=== PATIENT | female | born 1995 | race Two or more races ===

== ENCOUNTER 2019-03-29 13:28 | Inpatient (IN) | payer MEDICAID ==
[~2019-03-29] VITALS: Ht 157.5 cm; Wt 34.9 kg
[2019-03-29] VITALS (7 sets, daily range): BP systolic 100–118; BP diastolic 60–71
[2019-03-29] MEDS ORDERED: MAGNESIUM HYDROXIDE SUSPENSION 30 ML UDCUP PO PRN (14:45)
[2019-03-29] MEDS ORDERED: LOPERAMIDE HCL 2 MG CAPSULE PO PRN (14:45)
[2019-03-29] MEDS ORDERED: ACETAMINOPHEN 325 MG TABLET PO PRN (14:45)
[2019-03-29] MEDS ORDERED: QUEtiapine FUMARATE 100 MG TABLET PO PRN (14:45)
[2019-03-29] MEDS ORDERED: LORazepam 2 MG TABLET PO PRN (14:45)
[2019-03-29] MEDS ORDERED: TUBERCULIN, PURIFIED PROTEIN DERIVATIVE 5 TU/0.1 ML SYRINGE ID ONE (14:45)
[2019-03-29] MEDS ORDERED: GuaiFENesin/D-METHORPHAN [SUGAR-FREE] 200-20MG/10 ML SYRUP UDCUP PO PRN (14:45)
[2019-03-29] MEDS ORDERED: PROMETHAZINE HCL 25 MG TABLET PO PRN (14:45)
[2019-03-29] MEDS ORDERED: MAG HYDROX/AL HYDROX/SIMETH ES 30 ML SUSPENSION UDCUP PO PRN (14:45)
[2019-03-29] MEDS: LORazepam 2 MG TABLET PO SCH (17:09)
[2019-03-29] MEDS: THIAMINE HCL 100 MG TABLET PO SCH (17:44)
[2019-03-29] MEDS: MIRTAZAPINE 15 MG TABLET PO SCH (21:16)
[2019-03-29] MEDS: ZOLPIDEM TARTRATE 10 MG TABLET PO PRN (21:21)
[2019-03-30] VITALS (7 sets, daily range): BP systolic 108–121; BP diastolic 61–85
[2019-03-30] MEDS ORDERED: LORazepam 2 MG TABLET PO PRN (07:00)
[2019-03-30 07:40] LABS: BASOPHILS % (AUTO) 0.4 % (0.0-2.0); EOSINOPHILS % (AUTO) 2.4 % (1.0-6.0); HEMOGLOBIN 13.2 g/dL (12.0-16.0); LYMPHOCYTES # (AUTO) 2.7 K/uL (1.0-4.8); LYMPHOCYTES % (AUTO) 37.9 % (22.0-44.0); MEAN CORPUSCULAR HEMOGLOBIN 29.1 pg (26.0-34.0); MEAN CORPUSCULAR HGB CONC 33.1 G/dL (31.0-37.0); MEAN CORPUSCULAR VOLUME 88 fL (80-100); MONOCYTES # (AUTO) 0.7 K/uL (0.1-1.0); MONOCYTES % (AUTO) 10.1 % (2.0-9.0); NEUTROPHILS # (AUTO) 3.5 K/uL (1.8-7.7); NEUTROPHILS % (AUTO) 49.2 % (40.0-70.0); PLATELET COUNT (AUTO) 210 K/uL (150-450); RED BLOOD CELL COUNT(AUTO) 4.54 MIL/uL (4.00-5.20); RED CELL DISTRIBUTION WIDTH 16.2 % (11.5-14.5)
[2019-03-30] MEDS: MULTIVITAMINS WITH MINERALS, THERAPEUTIC TABLET PO SCH (08:02)
[2019-03-30] MEDS: FOLIC ACID 1 MG TABLET PO SCH (08:03)
[2019-03-30] MEDS: THIAMINE HCL 100 MG TABLET PO SCH ×2 (08:03→16:45)
[2019-03-30 08:23] LABS: ALANINE AMINOTRANSFERASE 13 U/L (12-78); ALBUMIN 3.8 g/dL (3.4-5.0); ALKALINE PHOSPHATASE 41 U/L (46-116); ANION GAP 8 mmol/L (8-16); ASPARTATE AMINOTRANSFERASE 14 U/L (15-37); BILIRUBIN,TOTAL 0.6 mg/dL (0.1-1.0); CALCIUM, TOTAL 9.2 mg/dL (8.8-10.5); CARBON DIOXIDE 26 mmol/L (22-29); CHLORIDE 106 mmol/L (98-107); CHOL/HDL RATIO 3.1 (3.9-5.7); CHOLESTEROL 132 mg/dL (131-200); CREATININE 0.72 mg/dL (0.60-1.30); FREE T4 (FREE THYROXINE) 1.22 ng/dL (0.76-1.46); GLOMERULAR FILTR. RATE CALC > 60 mL/min (>60); GLUCOSE,RANDOM 86 mg/dL (70-110); HCG,QUANTITATIVE < 1 mIU/mL (0-6); HDL CHOLESTEROL 42 mg/dL (40-60); LDL CHOL (CALC.) 81 mg/dL (0-130); POTASSIUM 3.7 mmol/L (3.5-5.1); SODIUM SERUM 140 mmol/L (136-145); THYROID STIMULATING HORMONE 2.17 uIU/mL (0.36-3.74); TRIGLYCERIDES 45 mg/dL (15-150); UREA NITROGEN, BLOOD 14 mg/dL (7-18)
[2019-03-30] MEDS: LORazepam 2 MG TABLET PO SCH (12:18)
[2019-03-30] MEDS: ZOLPIDEM TARTRATE 10 MG TABLET PO PRN (21:03)
[2019-03-30] MEDS: MIRTAZAPINE 15 MG TABLET PO SCH (21:03)
[2019-03-31 00:22] VITALS: BP 108/68
[2019-03-31 07:38] LABS: MAGNESIUM 1.9 mg/dL (1.80-2.40); PHOSPHORUS 4.1 mg/dL (2.5-4.9)
[2019-03-31] MEDS: FLUoxetine HCL 20 MG CAPSULE PO SCH (08:04)
[2019-03-31] MEDS: MULTIVITAMINS WITH MINERALS, THERAPEUTIC TABLET PO SCH (08:04)
[2019-03-31] MEDS: FOLIC ACID 1 MG TABLET PO SCH (08:04)
[2019-03-31] MEDS: HydrOXYzine PAMOATE 50 MG CAPSULE PO PRN ×2 (08:04→16:28)
[2019-03-31] MEDS: THIAMINE HCL 100 MG TABLET PO SCH ×2 (08:04→16:23)
[2019-03-31 08:13] VITALS: BP 107/92
[2019-03-31 16:07] VITALS: BP 111/66
[2019-03-31] MEDS: MIRTAZAPINE 15 MG TABLET PO SCH (20:10)
[2019-04-01 06:26] VITALS: BP 103/65
[2019-04-01] MEDS ORDERED: LORazepam 1 MG TABLET PO PRN (07:00)
[2019-04-01 08:06] VITALS: BP 101/62
[2019-04-01 08:30] LABS: APPEARANCE,URINE TURBID (CLEAR); BILIRUBIN,URINE NEGATIVE (NEGATIVE); GLUCOSE, URINE (UA) NEGATIVE (NEGATIVE); KETONES,URINE NEGATIVE (NEGATIVE); LEUKOCYTE ESTERASE ,URINE NEGATIVE (NEGATIVE); NITRATE,URINE NEGATIVE (NEGATIVE); OCCULT BLOOD,URINE MODERATE (NEGATIVE); PROTEIN,URINE NEGATIVE (NEGATIVE); UROBILINOGEN,URINE 0.2 mg/dL (<=1.0)
[2019-04-01 08:43] LABS: AMPHET/METH SCREEN,URINE NEGATIVE (NEGATIVE); BARBITURATE SCREEN, URINE NEGATIVE (NEGATIVE); BENZODIAZEPINES SCREEN,URINE NEGATIVE (NEGATIVE); CANNABINOID SCREEN,URINE POSITIVE (NEGATIVE); COCAINE SCREEN,URINE NEGATIVE (NEGATIVE); METHADONE SCREEN, URINE NEGATIVE (NEGATIVE); OPIATE SCREEN,URINE NEGATIVE (NEGATIVE)
[2019-04-01 08:47] LABS: PHENCYCLIDINE SCREEN,URINE NEGATIVE (NEGATIVE)
[2019-04-01] MEDS: FLUoxetine HCL 20 MG CAPSULE PO SCH (08:56)
[2019-04-01] MEDS: FOLIC ACID 1 MG TABLET PO SCH (08:56)
[2019-04-01] MEDS: THIAMINE HCL 100 MG TABLET PO SCH ×2 (08:56→16:06)
[2019-04-01] MEDS: MULTIVITAMINS WITH MINERALS, THERAPEUTIC TABLET PO SCH (08:56)
[2019-04-01] MEDS ORDERED: LORazepam 1 MG TABLET PO SCH (09:00)
[2019-04-01 09:04] LABS: BACTERIA,URINE Rare /HPF (None Seen); RBC,URINE 0-2 /HPF (0-2); SQUAMOUS EPITHELIAL CELL,UR Rare /LPF (None Seen); WBC,URINE None Seen /HPF (0-5)
[2019-04-01 09:05] LABS: AMORPHOUS SEDIMENT,UR Moderate /LPF (None Seen)
[2019-04-01 16:05] VITALS: BP 110/64
[2019-04-01] MEDS: HydrOXYzine PAMOATE 50 MG CAPSULE PO PRN (16:22)
[2019-04-01] MEDS: MIRTAZAPINE 15 MG TABLET PO SCH (20:15)
[2019-04-02 05:39] VITALS: BP 101/62
[2019-04-02] MEDS ORDERED: LORazepam 1 MG TABLET PO PRN (07:00)
[2019-04-02 08:22] VITALS: BP 105/62
[2019-04-02] MEDS: FOLIC ACID 1 MG TABLET PO SCH (08:38)
[2019-04-02] MEDS: FLUoxetine HCL 20 MG CAPSULE PO SCH (08:38)
[2019-04-02] MEDS: MULTIVITAMINS WITH MINERALS, THERAPEUTIC TABLET PO SCH (08:38)
[2019-04-02] MEDS: THIAMINE HCL 100 MG TABLET PO SCH ×2 (08:39→16:06)
[2019-04-02] MEDS: HydrOXYzine PAMOATE 50 MG CAPSULE PO PRN (13:53)
[2019-04-02 16:02] VITALS: BP 100/66
[2019-04-02] MEDS ORDERED: NALT50TA PO (16:37)
[2019-04-02] MEDS ORDERED: FLUO-191 PO (16:37)
[2019-04-02] MEDS ORDERED: MIRT15 PO ×2 (16:37→18:04)
[2019-04-02] MEDS ORDERED: HYD50 PO ×2 (16:37→18:19)
[2019-04-02] MEDS ORDERED: FLUO-126 PO (18:04)
[2019-04-02] MEDS ORDERED: NALT50TA6 PO (18:04)
[2019-04-02] MEDS ORDERED: THIA100T72 PO (18:19)
[2019-04-02] MEDS ORDERED: FOLI1TAB15 PO (18:19)
[2019-04-02] MEDS ORDERED: MULT-1239 PO (18:19)
[2019-04-02] MEDS ORDERED: MIRTAZAPINE 15 MG TABLET PO SCH (20:00)
[2019-04-03] MEDS ORDERED: NALTREXONE HCL 50 MG TABLET PO SCH ×2 (09:00)
[2019-04-03] MEDS ORDERED: FLUoxetine HCL 20 MG CAPSULE PO SCH (09:00)
== END 2019-04-02 19:25 | disposition home or self-care (01) | DRG 751 ==
LOC: B2S 15:37 → OBSVTOIN 15:37
PROVIDERS: ADMIT Psychiatry & Neurology Psychiatry; ATTEND Psychiatry & Neurology Psychiatry
DX: F33.2 Major depressive disorder, recurrent severe without psychotic features (principal); Z91.19 Patient's noncompliance with other medical treatment and regimen; D64.9 Anemia, unspecified; F12.90 Cannabis use, unspecified, uncomplicated; F41.9 Anxiety disorder, unspecified; G47.00 Insomnia, unspecified; Z81.8 Family history of other mental and behavioral disorders; Z63.9 Problem related to primary support group, unspecified; Z59.9 Problem related to housing and economic circumstances, unspecified
CPT/HCPCS: 80307; 83036; 83735; 84100; 84439; 84443; 86592